=== PATIENT | female | born 2000 | race African-American/Black ===

== ENCOUNTER 2022-09-20 08:32 | Emergency (ER) | payer OTHER ==
[2022-09-20 08:53] VITALS: BP 102/78; PULSE 119; RESP 20; TEMP 98.5; BMI 15.9
[2022-09-20 10:28] LABS: BASO % 0.3 % (0-2.0); EOS % 0.1 % (0-4.5); HEMATOCRIT 37.3 % (32.4-45.2); LYMPH % 9.6 % (8-40); MCH 26.5 pg (25.7-33.7); MCHC 32.2 g/dl (32.0-36.0); MEAN CELL VOLUME 82.5 fl (80-96); MEAN PLT VOLUME 9.6 fl (7.5-11.1); MONO % 13.1 % (3.8-10.2); NEUT % 76.9 % (42.8-82.8); PLATELET COUNT 264 10^3/uL (134-434); RBC 4.53 M/mm3 (3.60-5.2); RDW 16.5 % (11.6-15.6); WHITE BLOOD COUNT 4.3 K/mm3 (4.0-10.0)
[2022-09-20 10:51] LABS: BLOOD UREA NITROGEN 5.8 mg/dL (7-18); CALCIUM 9.1 mg/dL (8.5-10.1)
[2022-09-20 10:55] LABS: CREATININE 0.7 mg/dL (0.55-1.3)
[2022-09-20 10:57] LABS: BILIRUBIN,TOTAL 0.3 mg/dL (0.2-1); TOT PROT 8.6 g/dl (6.4-8.2)
== END 2022-09-20 11:26 | disposition home or self-care (01) ==
LOC: JER 08:32 → MERGE 08:32 → JER 11:26
DX: J18.9 Pneumonia, unspecified organism (principal)
CPT/HCPCS: 0241U-QW; 36415; 71046-TC-FY; 80053; 85025; 99284-25

== ENCOUNTER 2022-09-23 15:10 | Inpatient (IN) | payer OTHER ==
[2022-09-23] MEDS ORDERED: SODIUM CHLORIDE 0.9% 500 ML INFUS.BAG IV ONE (17:49)
[2022-09-23 18:43] LABS: VENOUS O2 SATURATION 53.8 % (70-80); VENOUS PCO2 42.6 mmHg (38-52); VENOUS PH 7.388 (7.310-7.410)
[2022-09-23 18:49] LABS: BASO % 1.1 % (0-2.0); EOS % 0.1 % (0-4.5); HEMATOCRIT 35.7 % (32.4-45.2); HEMOGLOBIN 11.1 GM/dL (10.7-15.3); LYMPH % 4.4 % (8-40); MCH 25.8 pg (25.7-33.7); MCHC 31.1 g/dl (32.0-36.0); MEAN CELL VOLUME 83.1 fl (80-96); MEAN PLT VOLUME 10.3 fl (7.5-11.1); MONO % 7.4 % (3.8-10.2); PLATELET COUNT 325 10^3/uL (134-434); RDW 16.8 % (11.6-15.6); WHITE BLOOD COUNT 8.9 K/mm3 (4.0-10.0)
[2022-09-23] MEDS ORDERED: SULFAMETHOXAZOLE 80 MG/TRIMETHOPRIM 16 MG/ML VIAL IVPB ONE (19:11)
[2022-09-23] MEDS ORDERED: DEXAMETHASONE SOD PHOSPHATE 10 MG/1 ML VIAL IVPUSH ONE (19:13)
[2022-09-23 19:16] LABS: CALCIUM 8.7 mg/dL (8.5-10.1)
[2022-09-23 19:17] LABS: ALBUMIN 2.8 g/dl (3.4-5.0); BLOOD UREA NITROGEN 7.4 mg/dL (7-18); MAGNESIUM 1.6 mg/dL (1.8-2.4)
[2022-09-23 19:20] LABS: CREATININE 0.6 mg/dL (0.55-1.3)
[2022-09-23 19:22] LABS: BILIRUBIN,TOTAL 0.2 mg/dL (0.2-1); TOT PROT 7.8 g/dl (6.4-8.2)
[2022-09-23] MEDS ORDERED: DEXAMETHASONE SOD PHOSPHATE 10 MG/1 ML VIAL ONE (20:30)
[2022-09-23] MEDS ORDERED: WATER IVPB ONE (20:45)
[2022-09-23] MEDS ORDERED: SULFAMETHOXAZOLE IVPB ONE (20:45)
[2022-09-23] MEDS ORDERED: DEXTROSE 5% IVPB ONE (20:45)
[2022-09-23] MEDS ORDERED: TRIMETHOPRIM IVPB ONE (20:45)
[2022-09-24] MEDS: SODIUM CHLORIDE 1,000 ML IV SCH (00:25)
[2022-09-24] MEDS ORDERED: MAGNESIUM SULF 50% (8.12 MEQ/2 ML-1 GM VIAL) IVPB ONE (00:42)
[2022-09-24] MEDS ORDERED: VANCOMYCIN 1,000 MG in DEXTROSE 5%-WATER - 250 ML IVPB ONE (00:47)
[2022-09-24] MEDS ORDERED: PIPERACILLIN/TAZOB 4.5 GM 4.5 GM in DEXTROSE 5%-WATER 100 ML IVPB SCH (01:00)
[2022-09-24] MEDS ORDERED: SULFAMETHOXAZOLE 80 MG/TRIMETHOPRIM 16 MG/ML VIAL IVPB SCH ×3 (02:00→12:00)
[2022-09-24] MEDS ORDERED: MAGNESIUM SULFATE IN WATER 2 GM/50 ML IVPB IVPB ONE (02:05)
[2022-09-24] MEDS ORDERED: PIPERACILLIN/TAZOB 4.5 GM 4.5 GM/100 ML BAG IVPB ONE (02:05)
[2022-09-24] MEDS: PIPERACILLIN/TAZOB 4.5 GM 4.5 GM in DEXTROSE 5%-WATER 100 ML IVPB SCH ×2 (02:06→10:23)
[2022-09-24] MEDS: ALBUTEROL SO4 2.5/IPRATROPIUM 0.5 INH SOL 3 ML VIAL.NEB. NEB SCH ×7 (02:06→23:12)
[2022-09-24] MEDS: methylPREDNISolone NA SUCC 40 MG/1 ML VIAL IVPUSH SCH ×3 (03:05→17:17)
[2022-09-24] MEDS ORDERED: methylPREDNISolone NA SUCC 40 MG/1 ML VIAL ONE (03:07)
[2022-09-24] MEDS ORDERED: ALBUTEROL SO4 2.5/IPRATROPIUM 0.5 INH SOL 3 ML VIAL.NEB. NEB ONE (03:07)
[2022-09-24] MEDS ORDERED: VANCOMYCIN/WATER FOR INJ (PEG) 1,000 MG/200 ML BAG IVPB ONE (03:24)
[2022-09-24] MEDS: SULFAMETHOXAZOLE IVPB SCH ×4 (05:26→18:17)
[2022-09-24] MEDS: WATER IVPB SCH ×4 (05:26→18:17)
[2022-09-24] MEDS: DEXTROSE 5% IVPB SCH ×4 (05:26→18:17)
[2022-09-24] MEDS: TRIMETHOPRIM IVPB SCH ×4 (05:26→18:17)
[2022-09-24] MEDS ORDERED: VANCOMYCIN 750 MG in DEXTROSE 5%-WATER - 150 ML IVPB SCH (10:00)
[2022-09-24] MEDS: ENOXAPARIN NA (PORCINE) 40 MG/0.4 ML DISP.SYRIN SQ SCH (10:17)
[2022-09-24] MEDS ORDERED: THIAMINE HCL 100 MG TABLET (FP) PO ONE (10:32)
[2022-09-24] MEDS: BUDESONIDE/FORMETEROL FUMARATE 80/4.5 mcg INHALER IH SCH ×2 (10:46→22:07)
[2022-09-24 11:13] LABS: HEMATOCRIT 33.6 % (32.4-45.2); HEMOGLOBIN 10.4 GM/dL (10.7-15.3); MCH 25.7 pg (25.7-33.7); MCHC 30.9 g/dl (32.0-36.0); MEAN CELL VOLUME 83.1 fl (80-96); MEAN PLT VOLUME 10.6 fl (7.5-11.1); PLATELET COUNT 345 10^3/uL (134-434); RBC 4.05 M/mm3 (3.60-5.2); RDW 16.7 % (11.6-15.6); WHITE BLOOD COUNT 3.6 K/mm3 (4.0-10.0)
[2022-09-24 11:37] LABS: CALCIUM 8.9 mg/dL (8.5-10.1)
[2022-09-24 11:38] LABS: ALBUMIN 2.7 g/dl (3.4-5.0); BLOOD UREA NITROGEN 8.9 mg/dL (7-18); MAGNESIUM 2.4 mg/dL (1.8-2.4)
[2022-09-24 11:41] LABS: CREATININE 0.9 mg/dL (0.55-1.3); PHOSPHOROUS 2.6 mg/dL (2.5-4.9)
[2022-09-24 11:42] LABS: BILIRUBIN,TOTAL 0.3 mg/dL (0.2-1); TOT PROT 7.9 g/dl (6.4-8.2)
[2022-09-24] MEDS ORDERED: FLUCONAZOLE 200 MG/NS 100 ML IVPB SCH (12:00)
[2022-09-24 12:07] LABS: ANISOCYTOSIS 0; MACROCYTOSIS 0
[2022-09-24] MEDS: FLUCONAZOLE 100 MG TABLET (UD) PO SCH (12:26)
[2022-09-24] MEDS ORDERED: THIAMINE HCL 200 MG/2 ML VIAL IVPB ONE (15:26)
[2022-09-24] MEDS: AMINO ACIDS/PROTEIN HYDROLYS 30 ML LIQUID.PKT PO SCH (17:17)
[2022-09-24] MEDS: MONTELUKAST NA 10 MG TABLET PO SCH (21:29)
[2022-09-25] MEDS: SODIUM CHLORIDE 1,000 ML IV SCH (01:15)
[2022-09-25] MEDS: TRIMETHOPRIM IVPB SCH ×3 (01:17→21:25)
[2022-09-25] MEDS: SULFAMETHOXAZOLE IVPB SCH ×3 (01:17→21:25)
[2022-09-25] MEDS: DEXTROSE 5% IVPB SCH ×3 (01:17→21:25)
[2022-09-25] MEDS: WATER IVPB SCH ×3 (01:17→21:25)
[2022-09-25] MEDS: methylPREDNISolone NA SUCC 40 MG/1 ML VIAL IVPUSH SCH ×3 (01:23→17:22)
[2022-09-25] MEDS: ALBUTEROL SO4 2.5/IPRATROPIUM 0.5 INH SOL 3 ML VIAL.NEB. NEB SCH ×5 (04:50→21:38)
[2022-09-25] MEDS: AMINO ACIDS/PROTEIN HYDROLYS 30 ML LIQUID.PKT PO SCH ×3 (08:22→17:22)
[2022-09-25 09:14] LABS: HEMOGLOBIN 9.1 GM/dL (10.7-15.3); MCH 25.1 pg (25.7-33.7); MCHC 30.4 g/dl (32.0-36.0); MEAN CELL VOLUME 82.5 fl (80-96); MEAN PLT VOLUME 10.3 fl (7.5-11.1); PLATELET COUNT 323 10^3/uL (134-434); RBC 3.64 M/mm3 (3.60-5.2); RDW 16.8 % (11.6-15.6)
[2022-09-25 09:33] LABS: BLOOD UREA NITROGEN 9.5 mg/dL (7-18); CALCIUM 8.6 mg/dL (8.5-10.1); PHOSPHOROUS 3.5 mg/dL (2.5-4.9)
[2022-09-25 09:34] LABS: ALBUMIN 2.5 g/dl (3.4-5.0)
[2022-09-25 09:35] LABS: BILIRUBIN,TOTAL 0.1 mg/dL (0.2-1); TOT PROT 7.3 g/dl (6.4-8.2)
[2022-09-25 09:36] LABS: CREATININE 0.7 mg/dL (0.55-1.3)
[2022-09-25] MEDS: ENOXAPARIN NA (PORCINE) 40 MG/0.4 ML DISP.SYRIN SQ SCH (09:55)
[2022-09-25] MEDS: FLUCONAZOLE 100 MG TABLET (UD) PO SCH (09:56)
[2022-09-25] MEDS: BUDESONIDE/FORMETEROL FUMARATE 80/4.5 mcg INHALER IH SCH ×2 (10:02→21:26)
[2022-09-25 10:29] LABS: ANISOCYTOSIS 2+; MACROCYTOSIS 0; OVALOCYTE 1+; TEAR DROP CELLS 1+
[2022-09-25] MEDS: MONTELUKAST NA 10 MG TABLET PO SCH (21:25)
[2022-09-26] MEDS: ALBUTEROL SO4 2.5/IPRATROPIUM 0.5 INH SOL 3 ML VIAL.NEB. NEB SCH ×5 (01:07→15:19)
[2022-09-26] MEDS: WATER IVPB SCH ×3 (01:24→17:00)
[2022-09-26] MEDS: SODIUM CHLORIDE 1,000 ML IV SCH ×2 (01:24→10:34)
[2022-09-26] MEDS: TRIMETHOPRIM IVPB SCH ×3 (01:24→17:00)
[2022-09-26] MEDS: SULFAMETHOXAZOLE IVPB SCH ×3 (01:24→17:00)
[2022-09-26] MEDS: DEXTROSE 5% IVPB SCH ×3 (01:24→17:00)
[2022-09-26] MEDS: methylPREDNISolone NA SUCC 40 MG/1 ML VIAL IVPUSH SCH ×3 (01:24→17:01)
[2022-09-26] MEDS: AMINO ACIDS/PROTEIN HYDROLYS 30 ML LIQUID.PKT PO SCH ×3 (09:16→17:01)
[2022-09-26] MEDS: FLUCONAZOLE 100 MG TABLET (UD) PO SCH (09:17)
[2022-09-26] MEDS: ENOXAPARIN NA (PORCINE) 40 MG/0.4 ML DISP.SYRIN SQ SCH (09:18)
[2022-09-26] MEDS: BUDESONIDE/FORMETEROL FUMARATE 80/4.5 mcg INHALER IH SCH ×2 (09:21→21:25)
[2022-09-26 12:00] LABS: HEMATOCRIT 28.4 % (32.4-45.2); HEMOGLOBIN 8.8 GM/dL (10.7-15.3); MCH 25.8 pg (25.7-33.7); MCHC 30.9 g/dl (32.0-36.0); MEAN CELL VOLUME 83.3 fl (80-96); MEAN PLT VOLUME 10.4 fl (7.5-11.1); PLATELET COUNT 382 10^3/uL (134-434); RBC 3.41 M/mm3 (3.60-5.2); WHITE BLOOD COUNT 20.1 K/mm3 (4.0-10.0)
[2022-09-26 12:30] LABS: BLOOD UREA NITROGEN 13.2 mg/dL (7-18)
[2022-09-26 12:31] LABS: ALBUMIN 2.7 g/dl (3.4-5.0); MAGNESIUM 2.2 mg/dL (1.8-2.4)
[2022-09-26 12:34] LABS: CREATININE 0.8 mg/dL (0.55-1.3)
[2022-09-26 12:35] LABS: BILIRUBIN,TOTAL 0.4 mg/dL (0.2-1)
[2022-09-26 12:52] LABS: ANISOCYTOSIS 2+; MACROCYTOSIS 0; OVALOCYTE 1+
[2022-09-26] MEDS ORDERED: LEVALBUTEROL HCL 0.31 MG/3 ML VIAL.NEB IH PRN ×2 (18:10→18:14)
[2022-09-26] MEDS: NAPH,MB-DB/K PH,MBDB POWDER PACKET PO SCH (21:25)
[2022-09-26] MEDS: MONTELUKAST NA 10 MG TABLET PO SCH (21:25)
[2022-09-27] MEDS: methylPREDNISolone NA SUCC 40 MG/1 ML VIAL IVPUSH SCH ×3 (01:52→17:59)
[2022-09-27] MEDS: SULFAMETHOXAZOLE IVPB SCH ×2 (01:58→10:29)
[2022-09-27] MEDS: DEXTROSE 5% IVPB SCH ×2 (01:58→10:29)
[2022-09-27] MEDS: TRIMETHOPRIM IVPB SCH ×2 (01:58→10:29)
[2022-09-27] MEDS: WATER IVPB SCH ×2 (01:58→10:29)
[2022-09-27] MEDS: AMINO ACIDS/PROTEIN HYDROLYS 30 ML LIQUID.PKT PO SCH ×3 (08:32→17:59)
[2022-09-27 09:53] LABS: HEMATOCRIT 30.4 % (32.4-45.2); HEMOGLOBIN 9.3 GM/dL (10.7-15.3); MCH 25.1 pg (25.7-33.7); MCHC 30.6 g/dl (32.0-36.0); MEAN CELL VOLUME 81.8 fl (80-96); MEAN PLT VOLUME 10.5 fl (7.5-11.1); PLATELET COUNT 432 10^3/uL (134-434); RBC 3.71 M/mm3 (3.60-5.2); RDW 16.5 % (11.6-15.6); WHITE BLOOD COUNT 14.1 K/mm3 (4.0-10.0)
[2022-09-27] MEDS: NAPH,MB-DB/K PH,MBDB POWDER PACKET PO SCH ×2 (10:04→21:48)
[2022-09-27] MEDS: FLUCONAZOLE 100 MG TABLET (UD) PO SCH (10:04)
[2022-09-27] MEDS: ENOXAPARIN NA (PORCINE) 40 MG/0.4 ML DISP.SYRIN SQ SCH (10:04)
[2022-09-27] MEDS: BUDESONIDE/FORMETEROL FUMARATE 80/4.5 mcg INHALER IH SCH ×2 (10:05→21:49)
[2022-09-27 10:13] LABS: ALBUMIN 2.6 g/dl (3.4-5.0); BLOOD UREA NITROGEN 14.5 mg/dL (7-18); CALCIUM 9.1 mg/dL (8.5-10.1); MAGNESIUM 2.3 mg/dL (1.8-2.4)
[2022-09-27 10:16] LABS: CREATININE 0.7 mg/dL (0.55-1.3)
[2022-09-27 10:17] LABS: PHOSPHOROUS 3.3 mg/dL (2.5-4.9)
[2022-09-27 10:18] LABS: BILIRUBIN,TOTAL 0.3 mg/dL (0.2-1); TOT PROT 7.4 g/dl (6.4-8.2)
[2022-09-27 11:09] LABS: ANISOCYTOSIS 0; HELMET CELLS 0; HOWELL-JOLLY BODIES 0; MACROCYTOSIS 0; OVALOCYTE 0; ROULEAU 0; SICKELED CELLS 0; TARGET CELLS 0; TEAR DROP CELLS 0; TOXIC GRANULATION 0
[2022-09-27] MEDS: ATOVAQUONE 750 MG/5 ML (UNIT-DOSE PACKAGING) PO SCH ×2 (12:29→17:59)
[2022-09-27] MEDS: MONTELUKAST NA 10 MG TABLET PO SCH (21:48)
[2022-09-28] MEDS: methylPREDNISolone NA SUCC 40 MG/1 ML VIAL IVPUSH SCH ×2 (01:22→09:21)
[2022-09-28] MEDS: ATOVAQUONE 750 MG/5 ML (UNIT-DOSE PACKAGING) PO SCH ×2 (09:20→17:12)
[2022-09-28] MEDS: FLUCONAZOLE 100 MG TABLET (UD) PO SCH (09:21)
[2022-09-28] MEDS: AMINO ACIDS/PROTEIN HYDROLYS 30 ML LIQUID.PKT PO SCH ×3 (09:21→17:12)
[2022-09-28] MEDS: NAPH,MB-DB/K PH,MBDB POWDER PACKET PO SCH (09:21)
[2022-09-28] MEDS: ENOXAPARIN NA (PORCINE) 40 MG/0.4 ML DISP.SYRIN SQ SCH (09:22)
[2022-09-28] MEDS: BUDESONIDE/FORMETEROL FUMARATE 80/4.5 mcg INHALER IH SCH ×2 (09:30→21:10)
[2022-09-28 10:37] LABS: CALCIUM 9.2 mg/dL (8.5-10.1)
[2022-09-28 10:38] LABS: ALBUMIN 2.6 g/dl (3.4-5.0); MAGNESIUM 2.2 mg/dL (1.8-2.4)
[2022-09-28 10:41] LABS: CREATININE 0.7 mg/dL (0.55-1.3); PHOSPHOROUS 3.9 mg/dL (2.5-4.9)
[2022-09-28 10:42] LABS: BILIRUBIN,TOTAL 0.3 mg/dL (0.2-1)
[2022-09-28 10:43] LABS: TOT PROT 7.2 g/dl (6.4-8.2)
[2022-09-28 10:57] LABS: BASO % 0.1 % (0-2.0); HEMATOCRIT 31.5 % (32.4-45.2); HEMOGLOBIN 9.8 GM/dL (10.7-15.3); LYMPH % 3.1 % (8-40); MCH 25.1 pg (25.7-33.7); MEAN PLT VOLUME 10.3 fl (7.5-11.1); MONO % 7.7 % (3.8-10.2); NEUT % 89.1 % (42.8-82.8); PLATELET COUNT 472 10^3/uL (134-434); RBC 3.89 M/mm3 (3.60-5.2); RDW 16.7 % (11.6-15.6); WHITE BLOOD COUNT 10.2 K/mm3 (4.0-10.0)
[2022-09-28] MEDS: NYSTATIN 500,000 UNITS/5 ML SUSPENSION PO SCH ×2 (12:04→17:12)
[2022-09-28 17:36] VITALS: BMI 15.9
[2022-09-28] MEDS: MONTELUKAST NA 10 MG TABLET PO SCH (21:09)
[2022-09-29] MEDS: NYSTATIN 500,000 UNITS/5 ML SUSPENSION PO SCH ×4 (00:44→17:00)
[2022-09-29] MEDS: MULTIVITAMINS (DAILY MVI) TABLET (FP) PO SCH (09:42)
[2022-09-29] MEDS: ATOVAQUONE 750 MG/5 ML (UNIT-DOSE PACKAGING) PO SCH ×2 (09:42→17:00)
[2022-09-29] MEDS: ENOXAPARIN NA (PORCINE) 40 MG/0.4 ML DISP.SYRIN SQ SCH (09:42)
[2022-09-29] MEDS: predniSONE 20 MG TABLET (UD) PO SCH (09:43)
[2022-09-29] MEDS: AMINO ACIDS/PROTEIN HYDROLYS 30 ML LIQUID.PKT PO SCH ×3 (09:43→17:00)
[2022-09-29] MEDS: BUDESONIDE/FORMETEROL FUMARATE 80/4.5 mcg INHALER IH SCH ×2 (09:53→22:59)
[2022-09-29 12:21] LABS: HEMATOCRIT 33.3 % (32.4-45.2); HEMOGLOBIN 10.4 GM/dL (10.7-15.3); MCH 25.8 pg (25.7-33.7); MCHC 31.2 g/dl (32.0-36.0); MEAN CELL VOLUME 82.5 fl (80-96); MEAN PLT VOLUME 10.1 fl (7.5-11.1); PLATELET COUNT 509 10^3/uL (134-434); RBC 4.03 M/mm3 (3.60-5.2); RDW 16.7 % (11.6-15.6); WHITE BLOOD COUNT 12.1 K/mm3 (4.0-10.0)
[2022-09-29 12:48] LABS: BILIRUBIN,DIRECT 0.1 mg/dL (0.0-0.2)
[2022-09-29 12:51] LABS: ALBUMIN 2.5 g/dl (3.4-5.0); BLOOD UREA NITROGEN 17.6 mg/dL (7-18); CALCIUM 9.3 mg/dL (8.5-10.1); IRON SERUM 116 ug/dL (50-175); MAGNESIUM 2.1 mg/dL (1.8-2.4)
[2022-09-29 12:52] LABS: TOTAL IRON BINDING CAPACITY 289 ug/dL (250-450)
[2022-09-29 12:54] LABS: PHOSPHOROUS 2.9 mg/dL (2.5-4.9)
[2022-09-29 12:55] LABS: CREATININE 0.7 mg/dL (0.55-1.3)
[2022-09-29 12:56] LABS: BILIRUBIN,TOTAL 0.3 mg/dL (0.2-1); TOT PROT 7.1 g/dl (6.4-8.2)
[2022-09-29 14:36] LABS: ANISOCYTOSIS 0; MACROCYTOSIS 0
[2022-09-29] MEDS: MONTELUKAST NA 10 MG TABLET PO SCH (22:54)
[2022-09-30] MEDS: NYSTATIN 500,000 UNITS/5 ML SUSPENSION PO SCH ×4 (00:49→17:28)
[2022-09-30] MEDS: ATOVAQUONE 750 MG/5 ML (UNIT-DOSE PACKAGING) PO SCH ×2 (08:39→17:28)
[2022-09-30] MEDS: AMINO ACIDS/PROTEIN HYDROLYS 30 ML LIQUID.PKT PO SCH ×3 (08:39→17:28)
[2022-09-30] MEDS: MULTIVITAMINS (DAILY MVI) TABLET (FP) PO SCH (10:23)
[2022-09-30] MEDS: ENOXAPARIN NA (PORCINE) 40 MG/0.4 ML DISP.SYRIN SQ SCH (10:23)
[2022-09-30] MEDS: BUDESONIDE/FORMETEROL FUMARATE 80/4.5 mcg INHALER IH SCH ×2 (10:23→21:19)
[2022-09-30] MEDS: predniSONE 20 MG TABLET (UD) PO SCH (10:23)
[2022-09-30 10:39] LABS: HEMOGLOBIN 10.2 GM/dL (10.7-15.3); MCH 25.6 pg (25.7-33.7); MEAN CELL VOLUME 82.8 fl (80-96); MEAN PLT VOLUME 9.7 fl (7.5-11.1); PLATELET COUNT 488 10^3/uL (134-434); RBC 3.99 M/mm3 (3.60-5.2); RDW 16.2 % (11.6-15.6)
[2022-09-30 10:43] LABS: WHITE BLOOD COUNT 11.2 K/mm3 (4.0-10.0)
[2022-09-30 11:11] LABS: CALCIUM 9.4 mg/dL (8.5-10.1)
[2022-09-30 11:12] LABS: ALBUMIN 2.5 g/dl (3.4-5.0); BLOOD UREA NITROGEN 16.8 mg/dL (7-18)
[2022-09-30 11:14] LABS: PHOSPHOROUS 3.2 mg/dL (2.5-4.9)
[2022-09-30 11:15] LABS: BILIRUBIN,TOTAL 0.2 mg/dL (0.2-1)
[2022-09-30 11:16] LABS: CREATININE 0.7 mg/dL (0.55-1.3)
[2022-09-30 11:53] LABS: ANISOCYTOSIS 0; MACROCYTOSIS 0; OVALOCYTE 1+
[2022-09-30] MEDS: DOXYCYCLINE HYCLATE 100 MG CAPSULE PO SCH (17:28)
[2022-09-30] MEDS: MONTELUKAST NA 10 MG TABLET PO SCH (21:16)
[2022-10-01] MEDS: NYSTATIN 500,000 UNITS/5 ML SUSPENSION PO SCH ×4 (01:00→17:24)
[2022-10-01 03:01] VITALS: RESP 18
[2022-10-01] MEDS: ATOVAQUONE 750 MG/5 ML (UNIT-DOSE PACKAGING) PO SCH ×2 (07:59→17:24)
[2022-10-01] MEDS: AMINO ACIDS/PROTEIN HYDROLYS 30 ML LIQUID.PKT PO SCH ×3 (07:59→17:24)
[2022-10-01] MEDS: ENOXAPARIN NA (PORCINE) 40 MG/0.4 ML DISP.SYRIN SQ SCH (09:59)
[2022-10-01] MEDS: DOXYCYCLINE HYCLATE 100 MG CAPSULE PO SCH ×2 (09:59→17:24)
[2022-10-01] MEDS: MULTIVITAMINS (DAILY MVI) TABLET (FP) PO SCH (09:59)
[2022-10-01] MEDS: predniSONE 20 MG TABLET (UD) PO SCH (09:59)
[2022-10-01] MEDS: BUDESONIDE/FORMETEROL FUMARATE 80/4.5 mcg INHALER IH SCH ×2 (10:00→21:19)
[2022-10-01 10:35] LABS: HEMATOCRIT 32.3 % (32.4-45.2); HEMOGLOBIN 10.3 GM/dL (10.7-15.3); MCH 26.5 pg (25.7-33.7); MEAN CELL VOLUME 82.8 fl (80-96); MEAN PLT VOLUME 9.6 fl (7.5-11.1); PLATELET COUNT 474 10^3/uL (134-434); RDW 16.6 % (11.6-15.6); WHITE BLOOD COUNT 10.2 K/mm3 (4.0-10.0)
[2022-10-01 10:57] LABS: ALBUMIN 2.4 g/dl (3.4-5.0); BLOOD UREA NITROGEN 16.7 mg/dL (7-18); CALCIUM 9.3 mg/dL (8.5-10.1); MAGNESIUM 1.9 mg/dL (1.8-2.4)
[2022-10-01 11:00] LABS: CREATININE 0.5 mg/dL (0.55-1.3); PHOSPHOROUS 3.6 mg/dL (2.5-4.9)
[2022-10-01 11:02] LABS: BILIRUBIN,TOTAL 0.3 mg/dL (0.2-1); TOT PROT 6.6 g/dl (6.4-8.2)
[2022-10-01 11:08] LABS: INR 0.96 (0.83-1.09)
[2022-10-01 11:15] LABS: ANISOCYTOSIS 1+; MACROCYTOSIS 1+; OVALOCYTE 1+
[2022-10-01] MEDS: MONTELUKAST NA 10 MG TABLET PO SCH (21:19)
[2022-10-02] MEDS: NYSTATIN 500,000 UNITS/5 ML SUSPENSION PO SCH ×4 (01:27→18:41)
[2022-10-02 09:50] LABS: HEMATOCRIT 32.8 % (32.4-45.2); HEMOGLOBIN 10.4 GM/dL (10.7-15.3); MCH 26.4 pg (25.7-33.7); MCHC 31.6 g/dl (32.0-36.0); MEAN CELL VOLUME 83.4 fl (80-96); MEAN PLT VOLUME 9.1 fl (7.5-11.1); PLATELET COUNT 470 10^3/uL (134-434); RBC 3.93 M/mm3 (3.60-5.2); RDW 16.3 % (11.6-15.6); WHITE BLOOD COUNT 12.5 K/mm3 (4.0-10.0)
[2022-10-02 09:57] LABS: INR 0.98 (0.83-1.09); PROTHROMBIN TIME (PATIENT) 11.3 SEC (9.7-13.0)
[2022-10-02 10:14] LABS: ALBUMIN 2.6 g/dl (3.4-5.0)
[2022-10-02] MEDS: ATOVAQUONE 750 MG/5 ML (UNIT-DOSE PACKAGING) PO SCH ×2 (10:15→18:42)
[2022-10-02] MEDS: ENOXAPARIN NA (PORCINE) 40 MG/0.4 ML DISP.SYRIN SQ SCH (10:15)
[2022-10-02] MEDS: predniSONE 20 MG TABLET (UD) PO SCH (10:15)
[2022-10-02] MEDS: MULTIVITAMINS (DAILY MVI) TABLET (FP) PO SCH (10:15)
[2022-10-02] MEDS: AMINO ACIDS/PROTEIN HYDROLYS 30 ML LIQUID.PKT PO SCH ×3 (10:15→18:41)
[2022-10-02] MEDS: DOXYCYCLINE HYCLATE 100 MG CAPSULE PO SCH ×2 (10:16→18:41)
[2022-10-02] MEDS: BUDESONIDE/FORMETEROL FUMARATE 80/4.5 mcg INHALER IH SCH ×2 (10:16→21:57)
[2022-10-02 10:17] LABS: CALCIUM 9.3 mg/dL (8.5-10.1); CREATININE 0.6 mg/dL (0.55-1.3); PHOSPHOROUS 4.8 mg/dL (2.5-4.9)
[2022-10-02 10:18] LABS: BILIRUBIN,TOTAL 0.4 mg/dL (0.2-1)
[2022-10-02 10:39] LABS: ANISOCYTOSIS 0; MACROCYTOSIS 0
[2022-10-02] MEDS ORDERED: valACYclovir HCL 1000 MG TABLET PO SCH (11:00)
[2022-10-02] MEDS ORDERED: ACYCLOVIR 400 MG TABLET PO SCH (14:00)
[2022-10-02] MEDS: POLYETHYLENE GLYCOL (HEALTHYLAX) 3350 17 GM PACKET PO SCH ×2 (14:23→21:55)
[2022-10-02] MEDS ORDERED: SODIUM CHLORIDE 1,000 ML IV SCH (15:30)
[2022-10-02] MEDS: MONTELUKAST NA 10 MG TABLET PO SCH (21:53)
[2022-10-02] MEDS ORDERED: valACYclovir HCL 500 MG TABLET (FP) PO SCH (22:00)
[2022-10-03] MEDS: NYSTATIN 500,000 UNITS/5 ML SUSPENSION PO SCH (00:55)
[2022-10-03 03:09] VITALS: BP 120/67; PULSE 80; TEMP 97.7
== END 2022-10-03 05:00 | disposition short-term general hospital (02) | DRG 892 ==
LOC: JER 15:10 → JERBED 22:30 → J6S 09-24 04:52
PROVIDERS: ADMIT Internal Medicine; ATTEND Internal Medicine
DX: B59 Pneumocystosis (principal); B20 Human immunodeficiency virus [HIV] disease; B37.0 Candidal stomatitis; J45.901 Unspecified asthma with (acute) exacerbation; B96.0 Mycoplasma pneumoniae [M. pneumoniae] as the cause of diseases classified elsewhere; Z68.1 Body mass index [BMI] 19.9 or less, adult; R74.01 Elevation of levels of liver transaminase levels; R01.1 Cardiac murmur, unspecified; E43 Unspecified severe protein-calorie malnutrition; J98.11 Atelectasis; M41.9 Scoliosis, unspecified; R00.0 Tachycardia, unspecified; R94.31 Abnormal electrocardiogram [ECG] [EKG]; D64.9 Anemia, unspecified; K76.0 Fatty (change of) liver, not elsewhere classified; R09.02 Hypoxemia; R64 Cachexia
CPT/HCPCS: 0241U-QW; 36415; 71045-TC-FY; 71275-TC; 74176-TC; 76705-TC; 80053; 82248; 82550; 82607; 82728; 82746; 82803; 82955; 82977; 83010; 83516; 83540; 83550; 83615; 83735; 84100; 84703; 85025; 85041; 85045; 85610; 86038; 86359; 86360; 86695; 86696; 86704; 86738; 86803; 87070; 87077; 87116; 87205; 87340; 87449; 87496; 87517; 87522; 87536; 87899; 93005; 93010; 93308; 94640; 97116-GP; 99285-25; C9803-CS; G0463-25; J1100; Q9967; U0003; U0005

== ENCOUNTER 2022-10-10 19:32 | Emergency (ER) | payer OTHER ==
[2022-10-10 19:41] VITALS: RESP 18; BMI 19.8
[2022-10-10 23:54] LABS: BASO % 0.5 % (0-2.0); EOS % 3.5 % (0-4.5); HEMATOCRIT 28.9 % (32.4-45.2); LYMPH % 3.4 % (8-40); MCH 26.7 pg (25.7-33.7); MCHC 31.3 g/dl (32.0-36.0); MEAN CELL VOLUME 85.4 fl (80-96); MEAN PLT VOLUME 9.1 fl (7.5-11.1); MONO % 10.4 % (3.8-10.2); NEUT % 82.2 % (42.8-82.8); PLATELET COUNT 270 10^3/uL (134-434); RBC 3.38 M/mm3 (3.60-5.2); RDW 20.1 % (11.6-15.6)
[2022-10-10] MEDS ORDERED: LACTATED RINGERS SOLUTION 1000 ML INFUS.BAG IV ONE (23:56)
[2022-10-10] MEDS ORDERED: ACETAMINOPHEN 1000 MG/100 ML BAG IVPB ONE (23:56)
[2022-10-11 00:06] LABS: ALBUMIN 2.7 g/dl (3.4-5.0); BLOOD UREA NITROGEN 11.6 mg/dL (7-18); CALCIUM 8.4 mg/dL (8.5-10.1); MAGNESIUM 1.9 mg/dL (1.8-2.4)
[2022-10-11 00:09] LABS: CREATININE 0.8 mg/dL (0.55-1.3)
[2022-10-11 00:10] LABS: BILIRUBIN,TOTAL 0.2 mg/dL (0.2-1); TOT PROT 6.2 g/dl (6.4-8.2)
[2022-10-11 00:15] LABS: N-TERMINAL BNP 249.2 pg/ml (5-125)
[2022-10-11] MEDS ORDERED: ACETAMINOPHEN INJECTION 100 ML IVPB ONE (01:00)
[2022-10-11 02:11] VITALS: BP 114/54; PULSE 107; TEMP 98.6
== END 2022-10-11 02:27 | disposition home or self-care (01) ==
LOC: JER 19:32
PROC: 3E033GC Introduction of Other Therapeutic Substance into Peripheral Vein, Percutaneous Approach (ICD-10-PCS; principal; 2022-10-10)
DX: M79.89 Other specified soft tissue disorders (principal); R10.84 Generalized abdominal pain
CPT/HCPCS: 0241U-QW; 36415; 76705-TC; 80053; 82550; 83735; 83880; 85025; 85651; 86140; 99284-25

== ENCOUNTER 2022-10-17 14:12 | Inpatient (IN) | payer OTHER ==
[2022-10-17] MEDS ORDERED: ACETAMINOPHEN 1000 MG/100 ML BAG IVPB ONE (15:30)
[2022-10-17] MEDS ORDERED: SODIUM CHLORIDE 0.9% 500 ML INFUS.BAG IV ONE ×3 (15:33→15:51)
[2022-10-17] MEDS ORDERED: ACETAMINOPHEN INJECTION 100 ML IVPB ONE (15:56)
[2022-10-17] MEDS ORDERED: PIPERACILLIN/TAZOB 4.5 GM 4.5 GM in DEXTROSE 5%-WATER 100 ML IVPB ONE (16:31)
[2022-10-17] MEDS ORDERED: VANCOMYCIN 1 GM in D5W (PRE-DOCKED) 1,000 MG/250 ML IVPB ONE (16:38)
[2022-10-17] MEDS ORDERED: PIPERACILLIN/TAZOB 4.5 GM 4.5 GM/100 ML BAG IVPB ONE (16:42)
[2022-10-17] MEDS ORDERED: VANCOMYCIN/WATER FOR INJ (PEG) 1,000 MG/200 ML BAG IVPB ONE (16:43)
[2022-10-17 16:47] LABS: VENOUS BASE EXCESS -0.1 mmol/L (-2-2); VENOUS PCO2 31.8 mmHg (38-52); VENOUS PH 7.469 (7.310-7.410)
[2022-10-17 16:52] LABS: HEMOGLOBIN 9.7 GM/dL (10.7-15.3); MCH 25.2 pg (25.7-33.7); MCHC 30.3 g/dl (32.0-36.0); MEAN CELL VOLUME 83.2 fl (80-96); MEAN PLT VOLUME 9.8 fl (7.5-11.1); PLATELET COUNT 322 10^3/uL (134-434); RBC 3.84 M/mm3 (3.60-5.2); RDW 19.9 % (11.6-15.6); WHITE BLOOD COUNT 17.3 K/mm3 (4.0-10.0)
[2022-10-17 17:00] LABS: INR 1.33 (0.83-1.09); PROTHROMBIN TIME (PATIENT) 15.3 SEC (9.7-13.0)
[2022-10-17 17:03] LABS: ACTIVATED PTT 29.6 SECONDS (25.2-36.5)
[2022-10-17 17:20] LABS: BLOOD UREA NITROGEN 11.5 mg/dL (7-18); CALCIUM 9.6 mg/dL (8.5-10.1)
[2022-10-17 17:21] LABS: ALBUMIN 2.8 g/dl (3.4-5.0)
[2022-10-17 17:24] LABS: CREATININE 0.9 mg/dL (0.55-1.3)
[2022-10-17] MEDS ORDERED: diphenhydrAMINE HCL 25 MG CAPSULE (FP) PO ONE ×2 (17:25→17:27)
[2022-10-17 17:26] LABS: TOT PROT 8.4 g/dl (6.4-8.2)
[2022-10-17 18:04] LABS: ANISOCYTOSIS 1+; MACROCYTOSIS 0; PLATELET ESTIMATE NORMAL; TARGET CELLS 1+
[2022-10-17] MEDS ORDERED: DEXTROSE 50%-WATER - 25 GM/50 ML VIAL IVPUSH ONE (18:27)
[2022-10-17] MEDS ORDERED: DEXTROSE 50%-WATER 25 GM/50 ML DISP.SYRIN ONE (18:35)
[2022-10-17] MEDS ORDERED: NYSTATIN 500,000 UNITS/5 ML SUSPENSION PO ONE (18:35)
[2022-10-17 20:46] LABS: PH,URINE 5.5 (5.0-8.0); URINE APPEARANCE CLEAR; URINE BILIRUBIN NEGATIVE (NEGATIVE); URINE COLOR YELLOW; URINE GLUCOSE (UA) 2+ (NEGATIVE); URINE KETONE NEGATIVE (NEGATIVE); URINE LEUK ESTERASE NEGATIVE (NEGATIVE); URINE NITRITE NEGATIVE (NEGATIVE); URINE PROTEIN NEGATIVE (NEGATIVE); URINE UROBILINOGEN 0.2 mg/dL (0.2-1.0)
[2022-10-18] MEDS ORDERED: PIPERACILLIN/TAZOB 4.5 GM 4.5 GM in DEXTROSE 5%-WATER 100 ML IVPB ONE ×2 (00:30→08:30)
[2022-10-18] MEDS: SODIUM CHLORIDE 1,000 ML IV SCH (03:39)
[2022-10-18 06:31] LABS: BASO % 0.4 % (0-2.0); EOS % 3.9 % (0-4.5); HEMATOCRIT 26.3 % (32.4-45.2); HEMOGLOBIN 8.4 GM/dL (10.7-15.3); MCH 26.7 pg (25.7-33.7); MEAN CELL VOLUME 83.4 fl (80-96); MEAN PLT VOLUME 9.3 fl (7.5-11.1); MONO % 13.6 % (3.8-10.2); NEUT % 77.1 % (42.8-82.8); PLATELET COUNT 256 10^3/uL (134-434); RBC 3.16 M/mm3 (3.60-5.2); RDW 19.9 % (11.6-15.6); WHITE BLOOD COUNT 10.2 K/mm3 (4.0-10.0)
[2022-10-18 06:52] LABS: CALCIUM 8.3 mg/dL (8.5-10.1)
[2022-10-18 06:53] LABS: MAGNESIUM 2.1 mg/dL (1.8-2.4)
[2022-10-18 06:56] LABS: CREATININE 0.7 mg/dL (0.55-1.3); PHOSPHOROUS 3.2 mg/dL (2.5-4.9)
[2022-10-18 06:57] LABS: BILIRUBIN,TOTAL 0.6 mg/dL (0.2-1)
[2022-10-18 06:58] LABS: TOT PROT 6.8 g/dl (6.4-8.2)
[2022-10-18 07:06] LABS: ALBUMIN 2.2 g/dl (3.4-5.0)
[2022-10-18] MEDS ORDERED: ACETAMINOPHEN 325 MG TABLET (FP) PO PRN (08:39)
[2022-10-18] MEDS ORDERED: PIPERACILLIN/TAZOB 4.5 GM 4.5 GM/100 ML BAG IVPB ONE (08:40)
[2022-10-18] MEDS ORDERED: ENOXAPARIN NA (PORCINE) 40 MG/0.4 ML DISP.SYRIN SQ ONE (08:41)
[2022-10-18] MEDS ORDERED: FLUCONAZOLE 400 MG/NS 200 ML IVPB SCH (10:00)
[2022-10-18] MEDS: ENOXAPARIN NA (PORCINE) 40 MG/0.4 ML DISP.SYRIN SQ SCH (10:09)
[2022-10-18] MEDS: BICTEGRAV/EMTRICIT/TENOFOV (BIKTARVY) 50-200-25 MG TABLET PO SCH (10:09)
[2022-10-18] MEDS ORDERED: ACETAMINOPHEN 325 MG TABLET (FP) ONE (10:10)
[2022-10-18] MEDS ORDERED: VANCOMYCIN 1 GM in D5W (PRE-DOCKED) 1,000 MG/250 ML IVPB ONE (16:30)
[2022-10-18] MEDS ORDERED: VANCOMYCIN/WATER FOR INJ (PEG) 1,000 MG/200 ML BAG IVPB ONE ×2 (16:30→16:58)
[2022-10-18] MEDS ORDERED: PIPERACILLIN/TAZOB 2.25 GM 2.25 GM/50 ML BAG IVPB ONE (23:09)
[2022-10-18] MEDS: PIPERACILLIN/TAZOB 2.25 GM 2.25 GM in DEXTROSE 5%-WATER - 50 ML IVPB SCH (23:22)
[2022-10-19] MEDS: PIPERACILLIN/TAZOB 2.25 GM 2.25 GM in DEXTROSE 5%-WATER - 50 ML IVPB SCH ×3 (02:20→17:33)
[2022-10-19] MEDS: SODIUM CHLORIDE 1,000 ML IV SCH (03:02)
[2022-10-19 07:50] LABS: CALCIUM 8.6 mg/dL (8.5-10.1)
[2022-10-19 07:51] LABS: ALBUMIN 2.4 g/dl (3.4-5.0); BLOOD UREA NITROGEN 6.7 mg/dL (7-18)
[2022-10-19 07:54] LABS: CREATININE 0.8 mg/dL (0.55-1.3)
[2022-10-19 07:56] LABS: BILIRUBIN,TOTAL 0.4 mg/dL (0.2-1); TOT PROT 7.4 g/dl (6.4-8.2)
[2022-10-19 08:03] LABS: HEMATOCRIT 28.2 % (32.4-45.2); HEMOGLOBIN 8.6 GM/dL (10.7-15.3); MCH 25.2 pg (25.7-33.7); MCHC 30.4 g/dl (32.0-36.0); MEAN CELL VOLUME 82.9 fl (80-96); MEAN PLT VOLUME 10.3 fl (7.5-11.1); PLATELET COUNT 298 10^3/uL (134-434); RDW 20.1 % (11.6-15.6); WHITE BLOOD COUNT 12.1 K/mm3 (4.0-10.0)
[2022-10-19] MEDS: BICTEGRAV/EMTRICIT/TENOFOV (BIKTARVY) 50-200-25 MG TABLET PO SCH (09:08)
[2022-10-19] MEDS: ATOVAQUONE 750 MG/5 ML (UNIT-DOSE PACKAGING) PO SCH (09:08)
[2022-10-19] MEDS: ENOXAPARIN NA (PORCINE) 40 MG/0.4 ML DISP.SYRIN SQ SCH (09:09)
[2022-10-19 09:25] LABS: ANISOCYTOSIS 1+; MACROCYTOSIS 0
[2022-10-19 15:27] VITALS: BMI 17.6
[2022-10-20] MEDS: PIPERACILLIN/TAZOB 2.25 GM 2.25 GM in DEXTROSE 5%-WATER - 50 ML IVPB SCH ×3 (02:15→17:56)
[2022-10-20] MEDS: SODIUM CHLORIDE 1,000 ML IV SCH ×2 (06:19→23:50)
[2022-10-20 07:41] LABS: HEMATOCRIT 26.6 % (32.4-45.2); HEMOGLOBIN 8.6 GM/dL (10.7-15.3); MCH 26.6 pg (25.7-33.7); MCHC 32.3 g/dl (32.0-36.0); MEAN CELL VOLUME 82.3 fl (80-96); MEAN PLT VOLUME 9.8 fl (7.5-11.1); PLATELET COUNT 316 10^3/uL (134-434); RBC 3.23 M/mm3 (3.60-5.2); RDW 19.7 % (11.6-15.6); WHITE BLOOD COUNT 9.6 K/mm3 (4.0-10.0)
[2022-10-20] MEDS: ATOVAQUONE 750 MG/5 ML (UNIT-DOSE PACKAGING) PO SCH (07:45)
[2022-10-20 07:54] LABS: CALCIUM 8.5 mg/dL (8.5-10.1)
[2022-10-20 07:55] LABS: ALBUMIN 2.3 g/dl (3.4-5.0); BLOOD UREA NITROGEN 4.5 mg/dL (7-18)
[2022-10-20 07:58] LABS: CREATININE 0.8 mg/dL (0.55-1.3)
[2022-10-20 07:59] LABS: BILIRUBIN,TOTAL 0.3 mg/dL (0.2-1); TOT PROT 7.5 g/dl (6.4-8.2)
[2022-10-20 09:07] LABS: ANISOCYTOSIS 1+; MACROCYTOSIS 1+; TARGET CELLS 0
[2022-10-20] MEDS: ENOXAPARIN NA (PORCINE) 40 MG/0.4 ML DISP.SYRIN SQ SCH (09:38)
[2022-10-20] MEDS: BICTEGRAV/EMTRICIT/TENOFOV (BIKTARVY) 50-200-25 MG TABLET PO SCH (09:38)
[2022-10-20] MEDS: ACETAMINOPHEN 325 MG TABLET (FP) PO PRN (21:34)
[2022-10-21] MEDS: PIPERACILLIN/TAZOB 2.25 GM 2.25 GM in DEXTROSE 5%-WATER - 50 ML IVPB SCH ×3 (01:30→17:42)
[2022-10-21 07:28] LABS: BASO % 0.5 % (0-2.0); EOS % 3.5 % (0-4.5); HEMATOCRIT 27.9 % (32.4-45.2); HEMOGLOBIN 8.6 GM/dL (10.7-15.3); LYMPH % 7.8 % (8-40); MCH 25.7 pg (25.7-33.7); MCHC 30.9 g/dl (32.0-36.0); MEAN CELL VOLUME 83.2 fl (80-96); MEAN PLT VOLUME 9.9 fl (7.5-11.1); MONO % 17.6 % (3.8-10.2); NEUT % 70.6 % (42.8-82.8); PLATELET COUNT 336 10^3/uL (134-434); RBC 3.35 M/mm3 (3.60-5.2); RDW 19.4 % (11.6-15.6); WHITE BLOOD COUNT 7.3 K/mm3 (4.0-10.0)
[2022-10-21 07:58] LABS: CALCIUM 8.9 mg/dL (8.5-10.1)
[2022-10-21 07:59] LABS: ALBUMIN 2.3 g/dl (3.4-5.0); BLOOD UREA NITROGEN 7.1 mg/dL (7-18)
[2022-10-21 08:02] LABS: CREATININE 0.7 mg/dL (0.55-1.3)
[2022-10-21 08:03] LABS: BILIRUBIN,TOTAL 0.3 mg/dL (0.2-1); TOT PROT 7.8 g/dl (6.4-8.2)
[2022-10-21] MEDS: ACETAMINOPHEN 325 MG TABLET (FP) PO PRN ×2 (09:30→18:02)
[2022-10-21] MEDS: ATOVAQUONE 750 MG/5 ML (UNIT-DOSE PACKAGING) PO SCH (09:32)
[2022-10-21] MEDS: ENOXAPARIN NA (PORCINE) 40 MG/0.4 ML DISP.SYRIN SQ SCH (09:32)
[2022-10-21] MEDS: BICTEGRAV/EMTRICIT/TENOFOV (BIKTARVY) 50-200-25 MG TABLET PO SCH (09:33)
[2022-10-21] MEDS ORDERED: BENZOCAINE/MENTH/CETYLPYRD CL 1 EACH LOZENGE MM PRN (21:01)
[2022-10-22] MEDS: SODIUM CHLORIDE 1,000 ML IV SCH (01:37)
[2022-10-22] MEDS: PIPERACILLIN/TAZOB 2.25 GM 2.25 GM in DEXTROSE 5%-WATER - 50 ML IVPB SCH ×3 (02:37→17:55)
[2022-10-22] MEDS: ACETAMINOPHEN 325 MG TABLET (FP) PO PRN (02:49)
[2022-10-22] MEDS ORDERED: SODIUM CHLORIDE 500 ML IV STA (03:05)
[2022-10-22 08:25] LABS: HEMATOCRIT 31.9 % (32.4-45.2); HEMOGLOBIN 9.5 GM/dL (10.7-15.3); MCHC 29.9 g/dl (32.0-36.0); MEAN CELL VOLUME 83.6 fl (80-96); MEAN PLT VOLUME 10.6 fl (7.5-11.1); PLATELET COUNT 432 10^3/uL (134-434); RBC 3.81 M/mm3 (3.60-5.2); WHITE BLOOD COUNT 10.5 K/mm3 (4.0-10.0)
[2022-10-22 08:46] LABS: ALBUMIN 2.6 g/dl (3.4-5.0); BLOOD UREA NITROGEN 6.6 mg/dL (7-18); CALCIUM 9.3 mg/dL (8.5-10.1)
[2022-10-22 08:49] LABS: CREATININE 0.8 mg/dL (0.55-1.3)
[2022-10-22 08:51] LABS: BILIRUBIN,TOTAL 0.4 mg/dL (0.2-1); TOT PROT 8.4 g/dl (6.4-8.2)
[2022-10-22] MEDS: ATOVAQUONE 750 MG/5 ML (UNIT-DOSE PACKAGING) PO SCH (09:42)
[2022-10-22] MEDS: BICTEGRAV/EMTRICIT/TENOFOV (BIKTARVY) 50-200-25 MG TABLET PO SCH (09:42)
[2022-10-22] MEDS: ENOXAPARIN NA (PORCINE) 40 MG/0.4 ML DISP.SYRIN SQ SCH (09:43)
[2022-10-22] MEDS ORDERED: PIPERACILLIN/TAZOBACTAM 2.25 GM VIAL IVPB ONE (17:41)
[2022-10-23] MEDS: PIPERACILLIN/TAZOB 2.25 GM 2.25 GM in DEXTROSE 5%-WATER - 50 ML IVPB SCH ×3 (02:45→17:15)
[2022-10-23] MEDS: ACETAMINOPHEN 325 MG TABLET (FP) PO PRN ×2 (05:27→17:16)
[2022-10-23] MEDS: SODIUM CHLORIDE 1,000 ML IV SCH (07:10)
[2022-10-23] MEDS: BICTEGRAV/EMTRICIT/TENOFOV (BIKTARVY) 50-200-25 MG TABLET PO SCH (09:34)
[2022-10-23] MEDS: ENOXAPARIN NA (PORCINE) 40 MG/0.4 ML DISP.SYRIN SQ SCH (09:34)
[2022-10-23] MEDS: ATOVAQUONE 750 MG/5 ML (UNIT-DOSE PACKAGING) PO SCH (09:39)
[2022-10-23 09:51] LABS: HEMATOCRIT 31.5 % (32.4-45.2); HEMOGLOBIN 9.8 GM/dL (10.7-15.3); MCH 25.5 pg (25.7-33.7); MCHC 31.1 g/dl (32.0-36.0); MEAN PLT VOLUME 9.4 fl (7.5-11.1); PLATELET COUNT 512 10^3/uL (134-434); RBC 3.84 M/mm3 (3.60-5.2); RDW 20.2 % (11.6-15.6); WHITE BLOOD COUNT 9.4 K/mm3 (4.0-10.0)
[2022-10-23 10:31] LABS: CALCIUM 9.8 mg/dL (8.5-10.1)
[2022-10-23 10:32] LABS: BLOOD UREA NITROGEN 7.4 mg/dL (7-18)
[2022-10-23 10:35] LABS: CREATININE 0.9 mg/dL (0.55-1.3)
[2022-10-24] MEDS: PIPERACILLIN/TAZOB 2.25 GM 2.25 GM in DEXTROSE 5%-WATER - 50 ML IVPB SCH ×3 (02:36→18:53)
[2022-10-24] MEDS ORDERED: ONDANSETRON 4 MG/2 ML VIAL IVPUSH ONE (04:44)
[2022-10-24] MEDS ORDERED: MAG HYDROX/AL HYDROX/SIMETH -MYLANTA- ORAL SUSPENSION PO ONE (04:44)
[2022-10-24] MEDS ORDERED: MAG HYDROX/AL HYDROX/SIMETH 30 ML UNIT-DOSE CUP PO ONE (05:00)
[2022-10-24] MEDS: ENOXAPARIN NA (PORCINE) 40 MG/0.4 ML DISP.SYRIN SQ SCH (09:22)
[2022-10-24] MEDS: BICTEGRAV/EMTRICIT/TENOFOV (BIKTARVY) 50-200-25 MG TABLET PO SCH (09:22)
[2022-10-24] MEDS: ATOVAQUONE 750 MG/5 ML (UNIT-DOSE PACKAGING) PO SCH (09:23)
[2022-10-24 09:36] LABS: HEMOGLOBIN 9.2 GM/dL (10.7-15.3); MCH 25.1 pg (25.7-33.7); MCHC 30.7 g/dl (32.0-36.0); MEAN CELL VOLUME 81.6 fl (80-96); PLATELET COUNT 534 10^3/uL (134-434); RBC 3.68 M/mm3 (3.60-5.2); RDW 19.7 % (11.6-15.6)
[2022-10-24 09:55] LABS: CALCIUM 9.6 mg/dL (8.5-10.1)
[2022-10-24 09:59] LABS: CREATININE 0.9 mg/dL (0.55-1.3)
[2022-10-24] MEDS: DOCUSATE SODIUM 100 MG CAPSULE (FP) PO SCH (12:41)
[2022-10-24] MEDS: ACETAMINOPHEN 325 MG TABLET (FP) PO PRN (14:27)
[2022-10-24 14:49] VITALS: RESP 18
[2022-10-25] MEDS: PIPERACILLIN/TAZOB 2.25 GM 2.25 GM in DEXTROSE 5%-WATER - 50 ML IVPB SCH ×3 (02:15→17:19)
[2022-10-25] MEDS: ACETAMINOPHEN 325 MG TABLET (FP) PO PRN (05:13)
[2022-10-25] MEDS: ATOVAQUONE 750 MG/5 ML (UNIT-DOSE PACKAGING) PO SCH (08:22)
[2022-10-25 08:31] LABS: BASO % 0.8 % (0-2.0); EOS % 0.3 % (0-4.5); HEMATOCRIT 33.4 % (32.4-45.2); LYMPH % 8.5 % (8-40); MCHC 30.1 g/dl (32.0-36.0); MEAN PLT VOLUME 9.7 fl (7.5-11.1); MONO % 13.7 % (3.8-10.2); NEUT % 76.7 % (42.8-82.8); PLATELET COUNT 547 10^3/uL (134-434); RBC 4.02 M/mm3 (3.60-5.2); RDW 19.6 % (11.6-15.6); WHITE BLOOD COUNT 10.6 K/mm3 (4.0-10.0)
[2022-10-25 08:50] LABS: CALCIUM 9.5 mg/dL (8.5-10.1)
[2022-10-25 08:51] LABS: ALBUMIN 2.6 g/dl (3.4-5.0); BLOOD UREA NITROGEN 12.1 mg/dL (7-18); MAGNESIUM 2.2 mg/dL (1.8-2.4)
[2022-10-25 08:54] LABS: PHOSPHOROUS 4.3 mg/dL (2.5-4.9)
[2022-10-25 08:56] LABS: BILIRUBIN,TOTAL 0.3 mg/dL (0.2-1)
[2022-10-25] MEDS ORDERED: diphenhydrAMINE HCL 25 MG CAPSULE (FP) PO ONE (10:09)
[2022-10-25] MEDS: ENOXAPARIN NA (PORCINE) 40 MG/0.4 ML DISP.SYRIN SQ SCH (10:33)
[2022-10-25] MEDS: BICTEGRAV/EMTRICIT/TENOFOV (BIKTARVY) 50-200-25 MG TABLET PO SCH (10:33)
[2022-10-25] MEDS: DOCUSATE SODIUM 100 MG CAPSULE (FP) PO SCH (10:33)
[2022-10-26] MEDS: PIPERACILLIN/TAZOB 2.25 GM 2.25 GM in DEXTROSE 5%-WATER - 50 ML IVPB SCH ×3 (02:52→17:02)
[2022-10-26] MEDS: ACETAMINOPHEN 325 MG TABLET (FP) PO PRN ×2 (02:52→13:23)
[2022-10-26] MEDS: BICTEGRAV/EMTRICIT/TENOFOV (BIKTARVY) 50-200-25 MG TABLET PO SCH (10:29)
[2022-10-26] MEDS: ATOVAQUONE 750 MG/5 ML (UNIT-DOSE PACKAGING) PO SCH (10:29)
[2022-10-26] MEDS: DOCUSATE SODIUM 100 MG CAPSULE (FP) PO SCH (10:30)
[2022-10-26] MEDS: ENOXAPARIN NA (PORCINE) 40 MG/0.4 ML DISP.SYRIN SQ SCH (10:30)
[2022-10-26 22:24] VITALS: TEMP 98.4
[2022-10-27 08:09] LABS: BASO % 0.9 % (0-2.0); EOS % 0.6 % (0-4.5); HEMATOCRIT 29.2 % (32.4-45.2); HEMOGLOBIN 9.2 GM/dL (10.7-15.3); LYMPH % 11.5 % (8-40); MCH 25.5 pg (25.7-33.7); MCHC 31.4 g/dl (32.0-36.0); MEAN CELL VOLUME 81.3 fl (80-96); MEAN PLT VOLUME 9.1 fl (7.5-11.1); MONO % 12.1 % (3.8-10.2); NEUT % 74.9 % (42.8-82.8); PLATELET COUNT 561 10^3/uL (134-434); RDW 19.7 % (11.6-15.6); WHITE BLOOD COUNT 10.5 K/mm3 (4.0-10.0)
[2022-10-27 08:32] LABS: ALBUMIN 2.6 g/dl (3.4-5.0); CALCIUM 9.7 mg/dL (8.5-10.1)
[2022-10-27 08:33] LABS: BLOOD UREA NITROGEN 7.9 mg/dL (7-18)
[2022-10-27 08:35] LABS: PHOSPHOROUS 3.7 mg/dL (2.5-4.9)
[2022-10-27 08:36] LABS: CREATININE 0.9 mg/dL (0.55-1.3)
[2022-10-27 08:37] LABS: BILIRUBIN,TOTAL 0.7 mg/dL (0.2-1); TOT PROT 8.7 g/dl (6.4-8.2)
[2022-10-27] MEDS: ACETAMINOPHEN 325 MG TABLET (FP) PO PRN (11:13)
[2022-10-27] MEDS: DOCUSATE SODIUM 100 MG CAPSULE (FP) PO SCH (11:14)
[2022-10-27] MEDS: ATOVAQUONE 750 MG/5 ML (UNIT-DOSE PACKAGING) PO SCH (11:14)
[2022-10-27] MEDS: ENOXAPARIN NA (PORCINE) 40 MG/0.4 ML DISP.SYRIN SQ SCH (11:14)
[2022-10-27] MEDS: BICTEGRAV/EMTRICIT/TENOFOV (BIKTARVY) 50-200-25 MG TABLET PO SCH (11:14)
[2022-10-27 13:55] VITALS: BP 101/61; PULSE 92
[2022-10-27] MEDS ORDERED: PIPERACILLIN/TAZOB 2.25 GM 2.25 GM in DEXTROSE 5%-WATER - 50 ML IVPB SCH (18:00)
== END 2022-10-27 18:00 | disposition home or self-care (01) | DRG 892 ==
LOC: JER 14:12 → JERBED 15:25 → J4W 10-19 00:59 → J7W 10-22 14:22
PROVIDERS: ADMIT Internal Medicine; ATTEND Internal Medicine
DX: A41.9 Sepsis, unspecified organism (principal); B20 Human immunodeficiency virus [HIV] disease; E43 Unspecified severe protein-calorie malnutrition; R64 Cachexia; R00.0 Tachycardia, unspecified; R59.0 Localized enlarged lymph nodes; R74.01 Elevation of levels of liver transaminase levels; Z68.1 Body mass index [BMI] 19.9 or less, adult
CPT/HCPCS: 0241U-QW; 36415; 70491-TC; 71045-TC-FY; 71260-TC; 74177-TC; 80048; 80053; 81003; 82533; 82728; 82803; 82962; 83605; 83615; 83735; 83880; 84100; 84443; 84484; 84702; 85025; 85027; 85610; 85730; 86850; 86900; 86901; 87040; 87070; 87086; 87799; 87899; 88300-TC; 93005; 93010; 93306-TC; 93970-TC; 99285-25; C9803-CS; Q9967; U0003; U0005

== ENCOUNTER 2022-11-18 13:28 | Inpatient (IN) | payer OTHER ==
[2022-11-18] MEDS ORDERED: CEFEPIME HCL/D5W 2 GM/50 ML BAG IVPB ONE (15:29)
[2022-11-18] MEDS ORDERED: VANCOMYCIN 1 GM in D5W (PRE-DOCKED) 1,000 MG/250 ML IVPB ONE (15:31)
[2022-11-18] MEDS ORDERED: VANCOMYCIN/WATER FOR INJ (PEG) 1,000 MG/200 ML BAG IVPB ONE (15:36)
[2022-11-18] MEDS ORDERED: CEFEPIME 2 GM/100 ML BAG IVPB ONE (15:37)
[2022-11-18 15:38] LABS: BASO % 0.9 % (0-2.0); EOS % 0.2 % (0-4.5); HEMATOCRIT 30.2 % (32.4-45.2); HEMOGLOBIN 9.4 GM/dL (10.7-15.3); LYMPH % 24.8 % (8-40); MCH 24.1 pg (25.7-33.7); MCHC 31.2 g/dl (32.0-36.0); MEAN CELL VOLUME 77.2 fl (80-96); MONO % 14.2 % (3.8-10.2); NEUT % 59.9 % (42.8-82.8); PLATELET COUNT 512 10^3/uL (134-434); RBC 3.91 M/mm3 (3.60-5.2); RDW 19.1 % (11.6-15.6); WHITE BLOOD COUNT 5.8 K/mm3 (4.0-10.0)
[2022-11-18 15:53] LABS: CALCIUM 9.3 mg/dL (8.5-10.1)
[2022-11-18 15:54] LABS: ALBUMIN 3.2 g/dl (3.4-5.0); BLOOD UREA NITROGEN 10.9 mg/dL (7-18)
[2022-11-18 15:57] LABS: CREATININE 0.9 mg/dL (0.55-1.3)
[2022-11-18 15:58] LABS: TOT PROT 9.1 g/dl (6.4-8.2)
[2022-11-18] MEDS ORDERED: ONDANSETRON 4 MG/2 ML VIAL IVPUSH ONE (15:58)
[2022-11-18 15:59] LABS: BILIRUBIN,TOTAL 0.3 mg/dL (0.2-1)
[2022-11-18] MEDS ORDERED: ONDANSETRON 4 MG/2 ML VIAL ONE (16:00)
[2022-11-18] MEDS ORDERED: ACETAMINOPHEN 325 MG TABLET (FP) PO ONE (17:59)
[2022-11-18] MEDS ORDERED: ACETAMINOPHEN 325 MG TABLET (FP) ONE (18:00)
[2022-11-18] MEDS ORDERED: AZITHROMYCIN IVPB 500 MG in DEXTROSE 5%-WATER - 250 ML IVPB SCH (18:15)
[2022-11-18] MEDS ORDERED: ALBUTEROL SO4 HFA INHALER IH PRN (18:15)
[2022-11-18] MEDS ORDERED: AZITHROMYCIN 500 MG TABLET ONE (18:58)
[2022-11-18] MEDS ORDERED: predniSONE 20 MG TABLET (UD) ONE (18:58)
[2022-11-18] MEDS: predniSONE 20 MG TABLET (UD) PO SCH (19:01)
[2022-11-18] MEDS: AZITHROMYCIN 500 MG TABLET PO SCH (19:01)
[2022-11-18] MEDS ORDERED: REMDESIVIR 200 MG in SODIUM CHLORIDE 250 ML IVPB ONE (19:30)
[2022-11-18] MEDS: ETHAMBUTOL HCL 400 MG TABLET PO SCH (22:09)
[2022-11-19 07:35] LABS: INR 1.15 (0.83-1.09); PROTHROMBIN TIME (PATIENT) 13.3 SEC (9.7-13.0)
[2022-11-19 07:38] LABS: ACTIVATED PTT 29.1 SECONDS (25.2-36.5)
[2022-11-19 07:41] LABS: BASO % 0.5 % (0-2.0); HEMATOCRIT 31.6 % (32.4-45.2); LYMPH % 23.1 % (8-40); MCH 24.9 pg (25.7-33.7); MCHC 31.7 g/dl (32.0-36.0); MEAN CELL VOLUME 78.6 fl (80-96); MEAN PLT VOLUME 8.3 fl (7.5-11.1); MONO % 3.6 % (3.8-10.2); NEUT % 72.8 % (42.8-82.8); PLATELET COUNT 528 10^3/uL (134-434); RBC 4.02 M/mm3 (3.60-5.2); RDW 18.9 % (11.6-15.6)
[2022-11-19 08:14] LABS: ALBUMIN 3.2 g/dl (3.4-5.0); BLOOD UREA NITROGEN 13.9 mg/dL (7-18); CALCIUM 9.7 mg/dL (8.5-10.1)
[2022-11-19 08:17] LABS: CREATININE 0.7 mg/dL (0.55-1.3)
[2022-11-19 08:18] LABS: TOT PROT 9.7 g/dl (6.4-8.2)
[2022-11-19 08:19] LABS: BILIRUBIN,TOTAL 0.4 mg/dL (0.2-1)
[2022-11-19] MEDS ORDERED: predniSONE 20 MG TABLET (UD) ONE (09:22)
[2022-11-19] MEDS ORDERED: ENOXAPARIN NA (PORCINE) 40 MG/0.4 ML DISP.SYRIN SQ ONE (09:22)
[2022-11-19] MEDS: REMDESIVIR 100 MG in SODIUM CHLORIDE 250 ML IVPB SCH (10:55)
[2022-11-19] MEDS: ETHAMBUTOL HCL 400 MG TABLET PO SCH ×2 (10:55→12:59)
[2022-11-19] MEDS: BICTEGRAV/EMTRICIT/TENOFOV (BIKTARVY) 50-200-25 MG TABLET PO SCH (10:55)
[2022-11-19] MEDS: ATOVAQUONE 750 MG/5 ML (UNIT-DOSE PACKAGING) PO SCH (10:55)
[2022-11-19] MEDS: predniSONE 20 MG TABLET (UD) PO SCH (10:56)
[2022-11-19] MEDS ORDERED: AZITHROMYCIN 250 MG TABLET ONE (11:00)
[2022-11-19] MEDS ORDERED: ENOXAPARIN NA (PORCINE) 30 MG/0.3 ML DISP.SYRIN SQ ONE (11:00)
[2022-11-19] MEDS: AZITHROMYCIN 500 MG TABLET PO SCH (11:01)
[2022-11-19] MEDS: ENOXAPARIN NA (PORCINE) 30 MG/0.3 ML DISP.SYRIN SQ SCH ×2 (11:01→11:21)
[2022-11-19] MEDS ORDERED: ETHAMBUTOL HCL PO SCH (12:00)
[2022-11-19] MEDS ORDERED: IBUPROFEN 400 MG TABLET (FP) PO PRN (15:11)
[2022-11-19] MEDS ORDERED: IBUPROFEN 400 MG TABLET (FP) PO ONE (15:29)
[2022-11-19 23:34] VITALS: BMI 16.8
[2022-11-20] MEDS ORDERED: ACETAMINOPHEN 325 MG TABLET (FP) PO ONE (09:53)
[2022-11-20] MEDS: predniSONE 20 MG TABLET (UD) PO SCH (10:20)
[2022-11-20] MEDS: ATOVAQUONE 750 MG/5 ML (UNIT-DOSE PACKAGING) PO SCH (10:20)
[2022-11-20] MEDS: ENOXAPARIN NA (PORCINE) 30 MG/0.3 ML DISP.SYRIN SQ SCH (10:20)
[2022-11-20] MEDS: BICTEGRAV/EMTRICIT/TENOFOV (BIKTARVY) 50-200-25 MG TABLET PO SCH (10:21)
[2022-11-20] MEDS: ETHAMBUTOL HCL 400 MG TABLET PO SCH (11:36)
[2022-11-20] MEDS: AZITHROMYCIN 500 MG TABLET PO SCH (11:37)
[2022-11-20] MEDS: REMDESIVIR 100 MG in SODIUM CHLORIDE 250 ML IVPB SCH (11:37)
[2022-11-21] MEDS: ENOXAPARIN NA (PORCINE) 30 MG/0.3 ML DISP.SYRIN SQ SCH (10:57)
[2022-11-21] MEDS: AZITHROMYCIN 500 MG TABLET PO SCH (10:57)
[2022-11-21] MEDS: ETHAMBUTOL HCL 400 MG TABLET PO SCH (10:58)
[2022-11-21] MEDS: ATOVAQUONE 750 MG/5 ML (UNIT-DOSE PACKAGING) PO SCH (10:59)
[2022-11-21] MEDS: BICTEGRAV/EMTRICIT/TENOFOV (BIKTARVY) 50-200-25 MG TABLET PO SCH (11:00)
[2022-11-21 11:45] LABS: EOS % 1.6 % (0-4.5); HEMATOCRIT 29.8 % (32.4-45.2); HEMOGLOBIN 9.2 GM/dL (10.7-15.3); LYMPH % 26.6 % (8-40); MCH 23.8 pg (25.7-33.7); MCHC 30.7 g/dl (32.0-36.0); MEAN CELL VOLUME 77.6 fl (80-96); MONO % 19.3 % (3.8-10.2); NEUT % 51.5 % (42.8-82.8); PLATELET COUNT 507 10^3/uL (134-434); RBC 3.84 M/mm3 (3.60-5.2); RDW 18.9 % (11.6-15.6); WHITE BLOOD COUNT 2.6 K/mm3 (4.0-10.0)
[2022-11-21 12:27] LABS: ALBUMIN 2.8 g/dl (3.4-5.0); BLOOD UREA NITROGEN 12.9 mg/dL (7-18)
[2022-11-21 12:28] LABS: CALCIUM 9.2 mg/dL (8.5-10.1); MAGNESIUM 1.8 mg/dL (1.8-2.4)
[2022-11-21 12:30] LABS: CREATININE 0.7 mg/dL (0.55-1.3); PHOSPHOROUS 3.7 mg/dL (2.5-4.9)
[2022-11-21 12:31] LABS: BILIRUBIN,TOTAL 0.2 mg/dL (0.2-1); TOT PROT 8.3 g/dl (6.4-8.2)
[2022-11-21 13:43] VITALS: BP 108/62; PULSE 108; RESP 18; TEMP 98.2
== END 2022-11-21 15:55 | disposition home or self-care (01) | DRG 894 ==
LOC: JER 13:28 → JERBED 16:36 → J5S 11-19 19:58
PROVIDERS: ADMIT Internal Medicine; ATTEND Internal Medicine
PROC: XW033E5 Introduction of Remdesivir Anti-infective into Peripheral Vein, Percutaneous Approach, New Technology Group 5 (ICD-10-PCS; principal; 2022-11-18)
DX: U07.1 COVID-19 (principal); R59.0 Localized enlarged lymph nodes; J45.909 Unspecified asthma, uncomplicated; B20 Human immunodeficiency virus [HIV] disease; Z86.19 Personal history of other infectious and parasitic diseases
CPT/HCPCS: 0241U-QW; 36415; 71045-TC-FY; 80053; 83735; 84100; 85025; 85610; 85730; 86359; 86360; 86480; 87040; 87116; 93005; 93010; 99285-25; C9399